=== PATIENT | male | born 1985 ===

== ENCOUNTER 2022-03-31 07:21 | Emergency (ER) | payer MEDICAID, OTHER ==
[2022-03-31] MEDS: Ketorolac 30 MG/ML SDV IVPUSH ONE (07:41)
[2022-03-31] MEDS: Acetaminophen 500 MG Tab PO ONE (07:41)
[2022-03-31] MEDS: Ondansetron 4 MG Tab.DIS PO ONE (07:42)
[2022-03-31 08:14] LABS: CORONAVIRUS COVID-19 NAA NEGATIVE (NEGATIVE); RESPIRATORY SYNCYTIAL VIR NAA NEGATIVE (NEGATIVE)
== END 2022-03-31 08:38 | disposition home or self-care (01) ==
LOC: DL.ED 07:21
DX: K52.9 Noninfective gastroenteritis and colitis, unspecified (principal); I10 Essential (primary) hypertension; Z86.16 Personal history of COVID-19; Z20.822 Contact with and (suspected) exposure to COVID-19
CPT/HCPCS: 0241U; 96374; 99283; 99284-25; A9270-GY; J1885